=== PATIENT | male | born 1990 ===

== ENCOUNTER 2021-02-06 18:40 | Emergency (ER) | payer SELFPAY ==
[~2021-02-06] VITALS: Ht 172.7 cm; Wt 77.1 kg
--- NOTE | 2021-02-06 18:40 | NUR ---
30 YRS OLD MALE Came by catracho jaimes and priscilla heath with bilter hand caff pt very aggeted seen by DR ROGERS medication was givebn as order responded to tx pt asleey
[2021-02-06] MEDS ORDERED: HALOPERIDOL LACTATE 5 MG/1 ML VIAL IM ONE (18:45)
[2021-02-06] MEDS ORDERED: LORAZEPAM 2 MG/1 ML VIAL IM ONE (18:45)
[2021-02-06] MEDS ORDERED: diphenhydrAMINE 50 MG/1 ML VIAL IM ONE (18:45)
[2021-02-06] MEDS ORDERED: HALOPERIDOL LACTATE 5 MG/1 ML VIAL ONE (19:05)
[2021-02-06] MEDS ORDERED: diphenhydrAMINE 50 MG/1 ML VIAL ONE (19:05)
[2021-02-06 19:08] LABS: HEMATOCRIT 37.4 % (36.7-47.1); MEAN CORPUSCULAR HEMOGLOBIN 31.6 uug (23.8-33.4); MEAN CORPUSCULAR VOLUME 90.4 fL (73.0-96.2); PLATELET COUNT (AUTO) 294 K/uL (152-348)
[2021-02-06] MEDS ORDERED: LORAZEPAM 2 MG/1 ML VIAL ONE (19:09)
[2021-02-06 19:18] LABS: ALANINE AMINOTRANSFERASE 22 U/L (16-63); ALKALINE PHOSPHATASE 81 U/L (50-136); ASPARTATE AMINOTRANSFERASE 27 U/L (15-37); BILIRUBIN,DIRECT 0.1 mg/dL (0.0-0.2); BILIRUBIN,TOTAL 0.3 mg/dL (0.2-1.0); CARBON DIOXIDE 27 mmol/L (21-32); CHLORIDE 103 mmol/L (98-107); CREATININE 1.1 mg/dL (0.6-1.3); GLUCOSE 90 mg/dL (74-106); POTASSIUM 3.6 mmol/L (3.5-5.1); TOTAL PROTEIN, SERUM 7.2 g/dL (6.4-8.2); UREA NITROGEN, BLOOD 14 mg/dL (7-18)
[2021-02-06 19:19] LABS: ETHANOL < 3 MG/DL (0-0)
[2021-02-06 19:20] LABS: ACETAMINOPHEN < 2.0 ug/mL (10-30)
--- NOTE | 2021-02-06 19:30 | NUR ---
Hand off to oneida johnson
[2021-02-06 19:43] LABS: EOSINOPHILS % (MANUAL) 1 % (0-8); LYMPHOCYTES % (MANUAL) 33 % (20-40); MONOCYTES % (MANUAL) 17 % (2-10); NEUTROPHILS % (MANUAL) 49 % (42-75)
[2021-02-06 20:29] LABS: *BILIRUBIN,URIN NEGATIVE (NEGATIVE); *COLOR,URINE YELLOW (YELLOW); *KETONES,URINE TRACE (NEGATIVE); LEUKOCYTE ESTERASE ,URINE NEGATIVE (NEGATIVE); NITRITE, URINE NEGATIVE (NEGATIVE); PH,URINE 5.5 (5.0-8.0); UGLUCOSE NEGATIVE (NEGATIVE)
[2021-02-06 20:33] LABS: *BLOOD, URINE TRACE (NEGATIVE)
[2021-02-06 20:36] LABS: *CLARITY,URINE SLIGHTLY HAZY (CLEAR); BACTERIA,URINE NONE SEEN /HPF (NONE SEEN); SQUAMOUS EPITHELIAL CELL,UR FEW /HPF (NONE SEEN)
[2021-02-06 20:40] LABS: *AMPHETAMINE, URINE POSITIVE (NEGATIVE); *CANNABINOID, URINE NEGATIVE (NEGATIVE); *COCCAINE, URINE NEGATIVE (NEGATIVE); *OPIATE, URINE NEGATIVE (NEGATIVE); *PHENCYCLIDINE SCREEN,URINE NEGATIVE (NEGATIVE)
--- NOTE | 2021-02-06 23:00 | NUR ---
Sitter at bedside for 1:1
--- NOTE | 2021-02-06 23:43 | NUR ---
Called Fozia Gonsales [facility] for pt psych evaluation.
--- NOTE | 2021-02-07 07:36 | NUR ---
Released restraints. Sitter at bedside for 1:1.
--- NOTE | 2021-02-07 08:07 | NUR ---
Mendez CARUSOW at bedside for Pt psych eval.
--- NOTE | 2021-02-07 08:15 | NUR ---
Pt denies being suicidal.
--- NOTE | 2021-02-07 08:33 | NUR ---
Patient given written and verbal discharge instructions. Patient verbalizes understanding of instructions. Patient is ambulatory with steady gait. Refuses offer of prison placement. Patient given list of available shelters in surrounding area. Pt refused food. VSS, all belongings taken, no acute signs of distress, refused all other services at this time.
[2021-02-07 08:34] VITALS: BP 110/66
== END 2021-02-07 08:34 | disposition home or self-care (01) ==
LOC: ER 18:47
DX: R45.851 Suicidal ideations (principal); R45.850 Homicidal ideations; F15.129 Other stimulant abuse with intoxication, unspecified; F20.9 Schizophrenia, unspecified; F29 Unspecified psychosis not due to a substance or known physiological condition; Z59.01 Sheltered homelessness; R00.0 Tachycardia, unspecified
CPT/HCPCS: 36415; 80048; 80076; 80299; 80307; 80320; 81001; 83605; 85007; 85025; 93005; 96372; 99285; J1200; J1630; J2060; 70030-TC; A4663; C1758; G0480